=== PATIENT | female | born 1995 | race Caucasian/White ===

== ENCOUNTER 2022-04-06 18:05 | Emergency (ER) | payer OTHER, SELFPAY ==
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
[2022-04-06 18:11] VITALS: BP 135/85; PULSE 107; RESP 18; TEMP 36.9; O2SAT 100
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
== END 2022-04-06 22:14 | disposition home or self-care (01) ==
PROVIDERS: Emergency Provider Emergency Medicine
DX: S16.1XXA Strain of muscle, fascia and tendon at neck level, initial encounter (principal); S09.90XA Unspecified injury of head, initial encounter; V49.40XA Driver injured in collision with unspecified motor vehicles in traffic accident, initial encounter
CPT/HCPCS: 70450; 72125; 72128; 72131; 81025; 99284